=== PATIENT | female | born 1980 | race Caucasian/White ===

== ENCOUNTER → 2017-09-26 | Day surgery (SDC) | payer OTHER ==
[~2017-09-26] VITALS: Ht 162.6 cm; Wt 73.9 kg
--- NOTE | 2017-09-27 17:01 | Operative Report ---
Operative/Inv Procedure Report Surgery Date: 09/26/17 Name of Procedure: Excisional biopsy of left foldable Pre-Operative Diagnosis: 3 lesions vulva Post-Operative Diagnosis: Same Estimated Blood Loss: scant Surgeon/Field Marketing Lead: Maribell Nolan MD Anesthesia: moderate sedation, block Operative/Procedure Note Note: Procedure note patient was taken the operating room placed supine position after adequate anesthesia patient placed in dorsolithotomy position the vagina from dorsal fashion a block was placed underneath all 3 vulva lesions on the left and using a needle tip Bovie the lesions were removed patient tolerated this well at this point on mew proton bacitracin was applied to the skin patient tolerated that well on maximum amount of Betadine was removed patient was returned spine position she was awakened from anesthesia and transported recovery room awake alert with counts correct
== END ==
LOC: STS 02:16
DX: A63.0 Anogenital (venereal) warts (principal)
CPT/HCPCS: 36415; 81001; J2250